=== PATIENT | male | born 1940 | race Caucasian/White ===

== ENCOUNTER 2023-06-02 07:52 | Emergency (ER) | payer OTHER ==
[~2023-06-02] VITALS: Ht 172.7 cm; Wt 70.3 kg
[2023-06-02 08:03] VITALS: BP_SYST 111; PULSE 76; RESP 20; TEMP 98.3; O2SAT 98
[2023-06-02] MEDS ORDERED: MORPHINE 2 MG/ML INJ. SYRINGE IM ONE (08:15)
[2023-06-02] MEDS ORDERED: DIPHTH,PERTUSS(ACELL),TET VAC 0.5 ML VIAL (Tdap) I.M. ONE (08:15)
[2023-06-02] MEDS ORDERED: IBUP-1969 PO (09:46)
[2023-06-02] MEDS ORDERED: TRAM50TA2 PO (09:46)
[2023-06-02 10:16] VITALS: RESP 20; TEMP 98.3; O2SAT 98
== END 2023-06-02 10:31 | disposition home or self-care (01) ==
LOC: SED 07:52
DX: S82.031A Displaced transverse fracture of right patella, initial encounter for closed fracture (principal); Z79.899 Other long term (current) drug therapy; W18.40XA Slipping, tripping and stumbling without falling, unspecified, initial encounter; Y93.89 Activity, other specified; Y92.89 Other specified places as the place of occurrence of the external cause; Y99.8 Other external cause status
CPT/HCPCS: 99284; 29505; 73564; 90715; 96372; 90471; J2270